=== PATIENT | female | born 1965 | race Caucasian/White ===

== ENCOUNTER → 2023-03-11 | Outpatient (CLI) | payer MEDICARE | LOC: MC.RAD 13:56 | DX: N63.11 Unspecified lump in the right breast, upper outer quadrant (principal); Z85.3 Personal history of malignant neoplasm of breast ==

== ENCOUNTER 2023-10-01 01:05 | Emergency (ER) | payer MEDICARE ==
[~2023-10-01] VITALS: Ht 152.4 cm; Wt 90.9 kg
[2023-10-01 01:16] VITALS: TEMP 98.5
[2023-10-01 02:33] LABS: BASO % 0.4 % (0.0-2.0); EOS # 0.1 K/mm3 (0.0-0.7); EOS % 2.1 % (0.0-4.0); GRAN # 2.6 K/mm3 (1.4-6.5); GRAN % 49.8 % (42.2-75.2); HEMATOCRIT 35.1 % (37.0-47.0); HEMOGLOBIN 11.8 g/dl (12.5-16.0); LYMPH # 1.7 K/mm3 (1.2-3.4); LYMPH % 33.7 % (20.0-51.0); MEAN CELL VOLUME 100 fl (80.0-100.0); MEAN CORPUSCULAR HEMOGLOBIN 34 pg (27-31); MEAN CORPUSCULAR HGB CONC 34 g/dl (33.0-37.0); MEAN PLATELET VOLUME 10.4 fl (7.4-10.4); MONO # 0.7 K/mm3 (0.1-0.6); MONO % 13.6 % (1.7-9.3); PLATELET COUNT 129 K/mm3 (130-400); REDCELL DISTRIBUTION WIDTH-CV 12.3 % (11.5-14.5)
[2023-10-01 02:50] LABS: ALBUMIN 3.1 gm/dL (3.5-5.0); BILIRUBIN,TOTAL 0.2 mg/dL (0.2-1.2); C-REACTIVE PROTEIN 5.58 mg/dL (0.00-0.50); CALCIUM 9.3 mg/dL (8.4-10.2); CREATININE, serum 0.95 mg/dL (0.57-1.11); POTASSIUM 4.4 mmol/L (3.5-4.5); TOTAL PROTEIN 7.3 gm/dL (6.2-8.1)
[2023-10-01] MEDS ORDERED: DOXYCYCLINE 10100 MG PO (03:23)
[2023-10-01 03:45] VITALS: BP 129/84; PULSE 82
== END 2023-10-01 03:45 | disposition home or self-care (01) ==
LOC: COL.ER 01:05
PROVIDERS: Nurse Practitioner
DX: T81.49XA Infection following a procedure, other surgical site, initial encounter (principal)

== ENCOUNTER 2024-01-17 14:15 | Outpatient (RCR) | payer MEDICARE ==
[~2024-01-17 14:15] MED LIST: DOXYCYCLINE 10100 MG PO
== END 2024-01-30 | disposition home or self-care (01) ==
LOC: WSPT
DX: C50.511 Malignant neoplasm of lower-outer quadrant of right female breast (principal)

== ENCOUNTER 2024-03-30 08:15 | Outpatient (RCR) | payer MEDICARE | END 2024-03-31 | disposition home or self-care (01) | LOC: WSPT | DX: C50.511 Malignant neoplasm of lower-outer quadrant of right female breast (principal); I89.0 Lymphedema, not elsewhere classified; Z90.10 Acquired absence of unspecified breast and nipple ==

== ENCOUNTER 2024-05-29 15:00 | Outpatient (RCR) | payer MEDICARE | END 2024-05-31 | disposition home or self-care (01) | LOC: WSPT | DX: I89.0 Lymphedema, not elsewhere classified (principal); Z85.3 Personal history of malignant neoplasm of breast; Z90.11 Acquired absence of right breast and nipple ==

== ENCOUNTER 2024-06-14 10:11 | Emergency (ER) | payer MEDICARE ==
[~2024-06-14] VITALS: Ht 154.9 cm; Wt 90.9 kg
[2024-06-14] MEDS ORDERED: NS 1,000 ML IV ONE (10:45)
[2024-06-14] MEDS ORDERED: Ondansetron 4 MG/2 ML VIAL IV ONE (10:45)
[2024-06-14] MEDS ORDERED: fentaNYL 50 MCG/ML 2 ML VIAL IV ONE ×2 (10:45→11:30)
[2024-06-14] MEDS ORDERED: oxyCODONE/Acetaminophen 7.5-325 MG TAB PO ONE ×2 (10:45→15:30)
[2024-06-14 11:37] LABS: MEAN CELL VOLUME 98 fl (80.0-100.0); MEAN CORPUSCULAR HGB CONC 34 g/dl (33.0-37.0); MEAN PLATELET VOLUME 12.6 fl (7.4-10.4); RED BLOOD COUNT 2.57 M/mm3 (4.10-5.30); REDCELL DISTRIBUTION WIDTH-CV 19.7 % (11.5-14.5)
[2024-06-14 11:41] LABS: HEMOGLOBIN 8.6 g/dl (12.5-16.0); MEAN CORPUSCULAR HEMOGLOBIN 33 pg (27-31)
[2024-06-14 11:42] LABS: HEMATOCRIT 25.2 % (37.0-47.0); PLATELET COUNT 42 K/mm3 (130-400)
[2024-06-14 12:06] LABS: BAND 1 % (0-10); EOSINOPHIL 1 % (0-4); NEUTROPHILS 13 % (42.0-75.2); PLATELET ESTIMATE DECREASED (NORMAL)
[2024-06-14 12:09] LABS: ALBUMIN 3.1 g/dL (3.4-4.8); BILIRUBIN,TOTAL 0.3 mg/dL (0.2-1.2); C-REACTIVE PROTEIN 1.6 mg/dL (0.00-0.50); CALCIUM 9.2 mg/dL (8.4-10.2); CREATININE, serum 0.86 mg/dL (0.57-1.11); POTASSIUM 4.6 mEq/L (3.5-4.5); TOTAL PROTEIN 6.5 g/dl (6.2-8.1)
[2024-06-14] MEDS ORDERED: fentaNYL 50 MCG/ML 2 ML VIAL IV PRN (13:15)
[2024-06-14 14:41] LABS: COLLECTION METHOD RANDOM VOIDED
[2024-06-14 14:48] LABS: URINE APPEARANCE CLEAR (CLEAR/HAZY); URINE BLOOD NEGATIVE (NEGATIVE); URINE COLOR YELLOW (YELLOW); URINE GLUCOSE 3+ (NEGATIVE); URINE KETONE NEGATIVE (NEGATIVE); URINE NITRATE NEGATIVE (NEGATIVE); URINE PROTEIN(semi-quant) NEGATIVE (NEGATIVE)
[2024-06-14 16:18] VITALS: BP 117/74; PULSE 90
[2024-06-16 09:06] LABS: LYMPHOCYTE 81 % (20.0-51.0); PATHOLOGY DIFF REVIEW OK +
== END 2024-06-14 16:35 | disposition short-term general hospital (02) ==
LOC: COL.ER 10:11
PROVIDERS: Emergency Medicine
DX: C95.00 Acute leukemia of unspecified cell type not having achieved remission (principal)
CPT/HCPCS: J2405; J3010; J7030

== ENCOUNTER 2024-06-15 15:45 | Outpatient (RCR) | payer MEDICARE | END 2024-07-01 | disposition home or self-care (01) | LOC: WSPT | DX: I89.0 Lymphedema, not elsewhere classified (principal); Z85.3 Personal history of malignant neoplasm of breast; Z90.11 Acquired absence of right breast and nipple ==

== ENCOUNTER 2024-08-26 00:07 | Emergency (ER) | payer MEDICARE ==
[~2024-08-26] VITALS: Ht 154.9 cm; Wt 90.9 kg
[2024-08-26 00:09] VITALS: TEMP 98
[2024-08-26 00:23] LABS: BASO % 0.7 % (0.0-2.0); EOS % 1.4 % (0.0-4.0); GRAN # 2.1 K/mm3 (1.4-6.5); GRAN % 71.5 % (42.2-75.2); LYMPH # 0.5 K/mm3 (1.2-3.4); LYMPH % 16.9 % (20.0-51.0); MEAN CELL VOLUME 96 fl (80.0-100.0); MEAN CORPUSCULAR HGB CONC 33 g/dl (33.0-37.0); MEAN PLATELET VOLUME 11.3 fl (7.4-10.4); MONO # 0.2 K/mm3 (0.1-0.6); MONO % 8.1 % (1.7-9.3); PLATELET COUNT 59 K/mm3 (130-400); RED BLOOD COUNT 2.34 M/mm3 (4.10-5.30); REDCELL DISTRIBUTION WIDTH-CV 25.5 % (11.5-14.5)
[2024-08-26 00:27] LABS: HEMATOCRIT 22.5 % (37.0-47.0); HEMOGLOBIN 7.5 g/dl (12.5-16.0); MEAN CORPUSCULAR HEMOGLOBIN 32 pg (27-31)
[2024-08-26] MEDS ORDERED: Iohexol 300 - 100 ML VIAL IV ONE (00:35)
[2024-08-26] MEDS ORDERED: NS 50 ML IV SCH (00:36)
[2024-08-26 00:37] LABS: ALBUMIN 3.1 g/dL (3.4-4.8); CALCIUM 8.9 mg/dL (8.4-10.2); CREATININE, serum 0.92 mg/dL (0.57-1.11); POTASSIUM 4.2 mEq/L (3.5-4.5); TOTAL PROTEIN 6.6 g/dl (6.2-8.1)
[2024-08-26 00:42] LABS: TROPONIN-I 0.018 ng/mL (0.00-0.033)
[2024-08-26 00:49] LABS: MAGNESIUM 1.6 mg/dL (1.6-2.6)
[2024-08-26] MEDS ORDERED: Home traMADol 50 MG #2 TAB/PACK PO ONE (01:45)
[2024-08-26] MEDS ORDERED: ULTRAM 50MG TAB50 MG PO ×2 (01:49→01:51)
[2024-08-26 02:25] VITALS: BP 100/68; PULSE 87
== END 2024-08-26 02:25 | disposition home or self-care (01) ==
LOC: COL.ER 00:07
PROVIDERS: Emergency Medicine
DX: K80.50 Calculus of bile duct without cholangitis or cholecystitis without obstruction (principal); Z85.3 Personal history of malignant neoplasm of breast
CPT/HCPCS: Q9967

== ENCOUNTER 2024-10-04 08:51 | Emergency (ER) | payer MEDICARE ==
[~2024-10-04] VITALS: Ht 154.9 cm; Wt 90.9 kg
[~2024-10-04 08:51] MED LIST changes: +ALDACTONE50 MG PO; +ARIMIDEX1 MG PO; +B-12 500 MCG PO; +BASAGLAR K100 UNIT/1 SQ; +COMPAZINE 110 MG/TAB PO; +CRESTOR20 MG PO; +EFFEXOR 75M75 MG/TAB PO; +EFFEXOR-XR150 MG PO; +FLONASEALLERGY NS; +GLUCOPHAGE1000 MG PO; +IMITREX 25MG TA25 MG PO; +LACTULOSE10 GM/153 PO; +MULTIPLE VITAMI1 CAP PO; +NEURONTIN300 MG/CAP PO; +NOVOLOG FLEX100 U/ML SQ; +PRIL40 PO; +PRINIVIL10 MG PO; +SYNTHROID 0.0.025 MG PO; +TOPROL XL 50MG50 MG PO; +ULTRAM 50MG TAB50 MG PO; +VFEND 200MG200 MG PO; +VITAMIN D3400 I1 PO; +WELLBUTRIN SR150 M1 PO; +ZOFRAN8 MG PO; +ZYLOPRIM 100MG100 MG PO
[2024-10-04 08:52] VITALS: TEMP 98.5
[2024-10-04] MEDS ORDERED: fentaNYL 50 MCG/ML 2 ML VIAL IV ONE ×2 (09:15→11:00)
[2024-10-04] MEDS ORDERED: PERCOCET 325 MG1 TA2 PO (11:48)
[2024-10-04 12:19] VITALS: BP 116/78; PULSE 93
== END 2024-10-04 12:28 | disposition home or self-care (01) ==
LOC: COL.ER 08:51
DX: M25.562 Pain in left knee (principal)
CPT/HCPCS: J3010